=== PATIENT | male | born 1940 | race Caucasian/White ===

== ENCOUNTER 2018-12-26 21:15 | Inpatient (IN) | payer OTHER ==
[~2018-12-26] VITALS: Ht 177.8 cm; Wt 105.2 kg
[2018-12-26] MEDS ORDERED: COUMADIN1 MG (21:28)
[2018-12-26] MEDS ORDERED: DIGOX125 MCG (21:28)
[2018-12-26] MEDS ORDERED: LASIX20 MG (21:29)
[2018-12-26] MEDS ORDERED: LIPITOR40 MG (21:29)
[2019-01-04] MEDS ORDERED: LOVENOX80 MG/0.8 SUBCUTANEO (09:45)
[2019-01-04] MEDS ORDERED: LIPITOR40 MG PO (09:45)
[2019-01-04] MEDS ORDERED: ISORDIL10 MG PO (09:46)
[2019-01-04] MEDS ORDERED: LOPRESSOR25 MG PO (09:46)
[2019-01-04] MEDS ORDERED: ENALAPRIL MALE2.5 MG PO (09:46)
[2019-01-04] MEDS ORDERED: LASIX20 MG PO (09:47)
[2019-01-04] MEDS ORDERED: HYDRALAZINE HCL25 MG PO (10:02)
== END 2019-01-04 10:42 | disposition home or self-care (01) | DRG 280 ==
LOC: ER 21:15 → MEDJ 12-27 10:37 → ICU-2 12-27 10:37 → ICU 12-27 10:37 → MEDJ 12-30 22:36
PROVIDERS: ADMIT Internal Medicine
PROC: B246ZZZ Ultrasonography of Right and Left Heart (ICD-10-PCS; principal; 2018-12-27)
PROC: 4A033R1 Measurement of Arterial Saturation, Peripheral, Percutaneous Approach (ICD-10-PCS; 2018-12-27)
PROC: 5A09457 Assistance with Respiratory Ventilation, 24-96 Consecutive Hours, Continuous Positive Airway Pressure (ICD-10-PCS; 2018-12-27)
PROC: 4A12X4Z Monitoring of Cardiac Electrical Activity, External Approach (ICD-10-PCS; 2018-12-30)
DX: I21.A1 Myocardial infarction type 2 (principal); I50.43 Acute on chronic combined systolic (congestive) and diastolic (congestive) heart failure; L03.116 Cellulitis of left lower limb; Z99.11 Dependence on respirator [ventilator] status; I48.2 Chronic atrial fibrillation; Z79.01 Long term (current) use of anticoagulants; I11.0 Hypertensive heart disease with heart failure; E78.49 Other hyperlipidemia; I08.0 Rheumatic disorders of both mitral and aortic valves; G47.33 Obstructive sleep apnea (adult) (pediatric); D63.8 Anemia in other chronic diseases classified elsewhere; D69.49 Other primary thrombocytopenia

== ENCOUNTER 2022-03-03 09:53 | Inpatient (IN) | payer OTHER ==
[~2022-03-03] VITALS: Ht 152.4 cm; Wt 96.6 kg
[~2022-03-03 09:53] MED LIST: COUMADIN1 MG; DIGOX125 MCG; ENALAPRIL MALE2.5 MG PO; HYDRALAZINE HCL25 MG PO; ISORDIL10 MG PO; LASIX20 MG; LASIX20 MG PO; LIPITOR40 MG; LIPITOR40 MG PO; LOPRESSOR25 MG PO; LOVENOX80 MG/0.8 SUBCUTANEO
[2022-03-03] MEDS ORDERED: ATORVASTATIN CA40 MG PO (10:31)
[2022-03-03] MEDS ORDERED: METOPROLOL SUCC50 MG PO (10:31)
[2022-03-03] MEDS ORDERED: CANDESARTAN CIL16 MG PO (10:31)
[2022-03-03] MEDS ORDERED: ELIQUIS5 MG (10:31)
[2022-03-03] MEDS ORDERED: FINASTERIDE5 MG PO (10:31)
[2022-03-03] MEDS ORDERED: NIFEDIPINE ER30 M1 PO (10:32)
[2022-03-03] MEDS ORDERED: HYDRALAZINE HCL50 MG PO (10:32)
--- NOTE | 2022-03-03 10:37 | NUR ---
SE RECIBE PACIENTE ALERTA, ORIENTADO X 3 ESFERAS ACOMPANADO DE FAMILIAR REFIERE TENER RESULTADOS DE LABORATORIOS CON HEMOGLOBINA EN [address] . REFERIDO POR DR[address]JOSE NAI ZAVALA. SE ESTIMAN S/V SE UBICA EN AREA DE OBSERVACION
--- NOTE | 2022-03-03 11:58 | NUR ---
SE ORIENTA PTE SOBRE TX A SEGUIR, EL CUAL REFIERE ENTENDER. SE COLECTAN MUESTRAS Y SE CANALIZA PTE UTILIZANDO MEDIDAS ASEPTICAS.
--- NOTE | 2022-03-03 12:30 | NUR ---
SE LLAMA A [facility] Y SE HABLA CON PARA VERIFICAR SI PTE TIENE RECORD PREVIO Y REQUISAR 2 UNIDADES DE PRBC. GAB REFIERE QUE PTE NO TIENE RECORD PREVIO Y HAY QUE COGERLE TERCER TUBO. SE COLECTA MUESTRAS COBY ORDEN MEDICA UTILIZANDO MEDIDAS ASEPTICAS. SE ENTREGA TUBOS PILOTOS Y TERCER TUBO A . PTE ALERTA Y ORIENTADO POR BYRON ESFERAS FIRMA CONCENTIMIENTO.
[2022-03-04] MEDS ORDERED: FLONASE16 GM (08:25)
[2022-03-04] MEDS ORDERED: AMLODIPINE BESYL5 MG (08:25)
[2022-03-04] MEDS ORDERED: NEO-POLY-DEXAMET5 ML (08:25)
[2022-03-04] MEDS ORDERED: FUROSEMIDE40 MG (08:25)
== END 2022-03-14 20:24 | disposition home or self-care (01) | DRG 812 ==
LOC: ER 09:53 → MEDI 14:30 → SEC-K 14:30 → MEDI 16:11
PROVIDERS: ADMIT Internal Medicine; ATTEND Internal Medicine
PROC: 30233N1 Transfusion of Nonautologous Red Blood Cells into Peripheral Vein, Percutaneous Approach (ICD-10-PCS; 2022-03-04)
PROC: 4A12X4Z Monitoring of Cardiac Electrical Activity, External Approach (ICD-10-PCS; principal; 2022-03-10)
DX: D64.9 Anemia, unspecified (principal); I12.0 Hypertensive chronic kidney disease with stage 5 chronic kidney disease or end stage renal disease; N18.5 Chronic kidney disease, stage 5; N17.8 Other acute kidney failure; N13.2 Hydronephrosis with renal and ureteral calculous obstruction; D63.1 Anemia in chronic kidney disease; E11.22 Type 2 diabetes mellitus with diabetic chronic kidney disease; R33.8 Other retention of urine; I25.10 Atherosclerotic heart disease of native coronary artery without angina pectoris; I48.91 Unspecified atrial fibrillation; Z20.822 Contact with and (suspected) exposure to COVID-19; I50.9 Heart failure, unspecified; I11.0 Hypertensive heart disease with heart failure; Z85.048 Personal history of other malignant neoplasm of rectum, rectosigmoid junction, and anus; D51.3 Other dietary vitamin B12 deficiency anemia